=== PATIENT | female | born 1980 | race American Indian/Alaskan Native ===

== ENCOUNTER 2016-11-18 22:48 | Emergency (ER) | payer MEDICAID ==
[2016-11-19] MEDS ORDERED: MOTRIN PO ONE (02:16)
[2016-11-19] MEDS ORDERED: MOTRIN ONE (02:17)
[2016-11-19] MEDS ORDERED: XYLOCAINE 2% INFILTRATI ONE (02:46)
--- NOTE | 2016-11-19 02:57 | Emergency Department Report ---
Abscess Boil HPI - HPI Chief Complaint: Skin/Abscess/Foreign Body Stated Complaint: CYST/ ABD PAIN Time Seen by Provider: 11/19/16 02:45 Duration: 3 Days Location: Other (groin right) Severity: Moderate History: Yes Pain, Yes Previous History, No Fever, No Numbness, No Foreign Body , No Insect Bite HPI: The patient is a 36-year-old female who presents to ED with her complaining of right groin pain and swelling for the past week. Patient states swelling has gotten bigger and painful to touch. Patient states she is unable to walk due to size in her groin and discomfort. She denies fevers/chills/ nausea/vomiting/abdominal pain/chest pain or any other problems Home Medications: Home Medications Medication Instructions Recorded Confirmed Last Taken Valacyclovir HCl [valACYclovir] 1 tab PO BID 07/08/15 07/17/15 07/07/15 21:00 1 Previous Rx's Medication Instructions Recorded Last Taken Type Ferrous Sulfate [Feosol 325 MG tab] 325 mg PO BID #60 tablet 07/18/15 Unknown Rx Vit W-Ca,Fe,FA(<1 mg) 1 each PO DAILY #30 tablet 07/18/15 Unknown Rx [ Vitamins] Acetaminophen/Codeine [Tylenol 1 tab PO Q6H PRN #10 tab 11/19/16 Unknown Rx /Codeine # 3 tab] Ibuprofen [Motrin 800 MG tab] 800 mg PO Q8HR PRN #30 tablet 11/19/16 Unknown Rx Sulfamethoxazole/Trimethoprim 1 each PO BID #14 tablet 11/19/16 Unknown Rx [Bactrim DS TAB] Allergies/Adverse Reactions: Allergies Allergy/AdvReac Type Severity Reaction Status Date / Time No Known Allergies Allergy Verified 07/08/15 07:23 ED Review of Systems ROS: Stated complaint: CYST/ ABD PAIN Other details as noted in HPI Constitutional: denies: chills, fever Eyes: denies: eye pain, eye discharge, vision change ENT: denies: ear pain, throat pain Respiratory: denies: cough, shortness of breath, wheezing Cardiovascular: denies: chest pain, palpitations Endocrine: no symptoms reported Gastrointestinal: denies: abdominal pain, nausea, diarrhea Genitourinary: denies: urgency, dysuria, discharge Musculoskeletal: denies: back pain, joint swelling, arthralgia Skin: denies: rash, lesions Neurological: denies: headache, weakness, paresthesias Psychiatric: denies: anxiety, depression Hematological/Lymphatic: denies: easy bleeding, easy bruising ED Past Medical Hx - Past Medical History Previous Medical History?: Yes Hx Hypertension: Yes Hx Congestive Heart Failure: No Hx Diabetes: No Hx Deep Vein Thrombosis: No Hx Renal Disease: No Hx Sickle Cell Disease: No Hx Seizures: No Hx Asthma: No Hx COPD: No Hx HIV: No - Surgical History Past Surgical History?: No - Social History Smoking Status: Current Every Day Smoker Substance Use Type: None - Medications Home Medications: Home Medications Medication Instructions Recorded Confirmed Last Taken Type Valacyclovir HCl [valACYclovir] 1 tab PO BID 07/08/15 07/17/15 07/07/15 21:00 History 1 Ferrous Sulfate [Feosol 325 MG tab] 325 mg PO BID #60 tablet 07/18/15 Unknown Rx Vit W-Ca,Fe,FA(<1 mg) 1 each PO DAILY #30 tablet 07/18/15 Unknown Rx [ Vitamins] Acetaminophen/Codeine [Tylenol 1 tab PO Q6H PRN #10 tab 11/19/16 Unknown Rx /Codeine # 3 tab] Ibuprofen [Motrin 800 MG tab] 800 mg PO Q8HR PRN #30 tablet 11/19/16 Unknown Rx Sulfamethoxazole/Trimethoprim 1 each PO BID #14 tablet 11/19/16 Unknown Rx [Bactrim DS TAB] ED Abscess Boil Physical Exam - Exam General: Vital signs noted. No distress. Alert and acting appropriately. Size: >5 cm Exam: Yes Tenderness, Yes Fluctuance, Yes Normal Neurologic Exam, Yes Normal Circulation, No Surrounding Cellulites/Erythema, No Lymphangitis, No Crepitation , No Heart Murmur I & D Note - I & D Note I & D Note: Patient positioned appropriately, 15cc lidocaine without epinephrine was used as a local anesthetic. #11 blade scalpal used for single incision. Additional local anesthetic injected into surrounding viable tissue prior to blunt dissection of loculated adhesions. Copius drainage of pus about 10 mL of copious drainage pus obtained. Wound packed with iodoform gauze. Procedure tolerated without complications. Wound dressed with sterile 4x4 guaze and paper tape. Pt tolerated procedure well. ED Course Vital Signs 11/18/16 22:55 Temperature 98.6 F Pulse Rate 99 H Respiratory 20 Rate Blood Pressure 132/90 [Right] O2 Sat by Pulse 97 Oximetry Critical care attestation.: If time is entered above; I have spent that time in minutes in the direct care of this critically ill patient, excluding procedure time. ED Medical Decision Making - Medical Decision Making 36 yo female presents with R groin abscess ED course: Patient is given 1 dose of Motrin. See I and D note Discussed home medication of antibiotics and pain control excellent discussed the patient follow up with ED 3 days for packing removal and wound check Vital signs are normal patient is in no acute distress Patient is alert and oriented 3 she understands instructions given ED Disposition Clinical Impression: Abscess of groin, right Disposition: DC- TO HOME OR SELFCARE Is pt being admited?: No Does the pt Need Aspirin: No Condition: Stable Instructions: Abscess (ED), Abscess Incision and Drainage (ED) Additional Instructions: Return to the ED in 3 days for packing removal and recheck Prescriptions: Acetaminophen/Codeine [Tylenol /Codeine # 3 tab] 1 tab PO Q6H PRN #10 tab PRN Reason: Pain Ibuprofen [Motrin 800 MG tab] 800 mg PO Q8HR PRN #30 tablet PRN Reason: Moderate Pain Sulfamethoxazole/Trimethoprim [Bactrim DS TAB] 1 each PO BID #14 tablet Referrals: PRIMARY CARE,MD [Primary Care Provider] - 3-5 Days [facility] [Outside] - 3-5 Days [facility] [Outside] - 3-5 Days [facility] [Outside] - 3-5 Days Forms: Accompanied Note, Work/School Release Form(ED)
[2016-11-19 04:18] VITALS: BP 132/71
== END 2016-11-19 04:18 | disposition home or self-care (01) ==
LOC: ED 22:48
DX: L02.214 Cutaneous abscess of groin (principal); I10 Essential (primary) hypertension; F17.200 Nicotine dependence, unspecified, uncomplicated

== ENCOUNTER → 2017-07-30 03:24 | Emergency (ER) | payer MEDICAID ==
[2017-07-30 04:48] VITALS: BP 111/64
== END | disposition left against medical advice (07) ==
LOC: ED 03:24
DX: Z53.21 Procedure and treatment not carried out due to patient leaving prior to being seen by health care provider (principal)

== ENCOUNTER 2020-08-12 02:47 | Inpatient (IN) | payer MEDICAID ==
[2020-08-12] MEDS ORDERED: IPRATROPIUM/ALBUTEROL SULFATE 3 ML AMPUL.NEB IH ONE (08:22)
--- NOTE | 2020-08-12 08:28 | Emergency Department Report ---
HPI - General Chief Complaint: Chest Pain Time Seen by Provider: 08/12/20 08:16 - [facility] HPI: Room 20 The patient is a 40-year-old female present with a chief complaint of shortness of breath. The patient states since yesterday she developed shortness of breath and a constant chest pressure. Patient states she ran out of her Lasix several weeks ago. Patient admits an occasional cough but states is nonproductive. Patient denies history of fever. Patient admits to pleurisy ED Past Medical Hx - Past Medical History Hx Hypertension: Yes Hx Congestive Heart Failure: Yes Hx Asthma: Yes - Surgical History Past Surgical History?: No - Family History Family history: no significant - Social History Smoking Status: Former Smoker (None times weeks) Substance Use Type: None (Denies illicit drug use) - Medications Home Medications: Home Medications Medication Instructions Recorded Confirmed Last Taken Type Valacyclovir HCl [valACYclovir] 1 tab PO BID 07/08/15 07/17/15 07/07/15 21:00 History 1 Ferrous Sulfate [Feosol 325 MG tab] 325 mg PO BID #60 tablet 07/18/15 Unknown Rx Vit Calc,Iron,Folic 1 each PO DAILY #30 tablet 07/18/15 Unknown Rx [ Vitamins] Acetaminophen/Codeine [Tylenol 1 tab PO Q6H PRN #10 tab 11/19/16 Unknown Rx /Codeine # 3 tab] Ibuprofen [Motrin 800 MG tab] 800 mg PO Q8HR PRN #30 tablet 11/19/16 Unknown Rx Sulfamethoxazole/Trimethoprim 1 each PO BID #14 tablet 11/19/16 Unknown Rx [Bactrim DS TAB] ED Review of Systems ROS: Stated complaint: CHEST PAIN/CAN'T BREATH Other details as noted in HPI Constitutional: denies: fever Eyes: denies: eye pain ENT: denies: throat pain Respiratory: cough, shortness of breath Cardiovascular: chest pain Endocrine: no symptoms reported Gastrointestinal: denies: abdominal pain Genitourinary: denies: dysuria Musculoskeletal: denies: back pain Neurological: denies: headache Physical Exam - Physical Exam Vital Signs: Vital Signs 08/12/20 08/12/20 03:00 04:04 Temperature 98.2 F Pulse Rate 107 H Respiratory 18 Rate Blood Pressure 123/98 [Left] O2 Sat by Pulse 97 Oximetry Physical Exam: GENERAL: The patient is well-developed well-nourished female lying on stretcher exhibiting increased work of breathing. [] HEENT: Normocephalic. Atraumatic. Extraocular motions are intact. Patient has moist mucous membranes. NECK: Supple. Trachea midline CHEST/LUNGS: Clear to auscultation. There is increased work of breathing HEART/CARDIOVASCULAR: Regular. There is no tachycardia. There is no gallop rub or murmur. ABDOMEN: Abdomen is soft, nontender. Patient has normal bowel sounds. There is no abdominal distention. SKIN: There is no rash. There is no edema. There is no diaphoresis. NEURO: The patient is awake, alert, and oriented. The patient is cooperative. The patient has no focal neurologic deficits. The patient has normal speech MUSCULOSKELETAL: There is no evidence of acute injury. ED Course Vital Signs 08/12/20 08/12/20 03:00 04:04 Temperature 98.2 F Pulse Rate 107 H Respiratory 18 Rate Blood Pressure 123/98 [Left] O2 Sat by Pulse 97 Oximetry ED Medical Decision Making - Lab Data Result diagrams: 08/12/20 09:00 08/12/20 09:00 Laboratory Tests 08/12/20 08/12/20 08/12/20 09:00 09:00 09:00 WBC 8.7 RBC 3.87 Hgb 10.5 Hct 32.6 MCV 84 MCH 27 L MCHC 32 RDW 18.8 H Plt Count 158 Lymph % (Auto) 15.2 Izard % (Auto) 4.8 Eos % (Auto) 1.2 Baso % (Auto) 0.5 Lymph # (Auto) 1.3 Izard # (Auto) 0.4 Eos # (Auto) 0.1 Baso # (Auto) 0.0 Seg Neutrophils % 78.3 H Seg Neutrophils # 6.8 D-Dimer 738.34 H Sodium 138 Potassium 4.1 Chloride 104.3 Carbon Dioxide 23 Anion Gap 15 BUN 12 Creatinine 0.6 Estimated GFR > 60 BUN/Creatinine Ratio 20 Glucose 96 Calcium 8.2 L Total Creatine Kinase 83 CK-MB (CK-2) 1.8 CK-MB (CK-2) Rel Index 2.1 Troponin T < 0.010 NT-Pro-B Natriuret Pep 978.7 H HCG, Qual 08/12/20 09:00 WBC RBC Hgb Hct MCV MCH MCHC RDW Plt Count Lymph % (Auto) Izard % (Auto) Eos % (Auto) Baso % (Auto) Lymph # (Auto) Izard # (Auto) Eos # (Auto) Baso # (Auto) Seg Neutrophils % Seg Neutrophils # D-Dimer Sodium Potassium Chloride Carbon Dioxide Anion Gap BUN Creatinine Estimated GFR BUN/Creatinine Ratio Glucose Calcium Total Creatine Kinase CK-MB (CK-2) CK-MB (CK-2) Rel Index Troponin T NT-Pro-B Natriuret Pep HCG, Qual Negative - EKG Data -: EKG Interpreted by Me EKG shows normal: sinus rhythm Rate: normal - EKG Data When compared to previous EKG there are: previous EKG unavailable Interpretation: nonspecific ST-T wave tiffany (T wave inversion in lead V5) - Radiology Data Radiology results: report reviewed (CT chest), image reviewed (Chest x-ray, CT chest) interpreted by me: Chest x-ray-CHF, no pneumothorax. No foreign body seen [facility] [address] [place] [address] Cat Scan Report Signed Patient: LANA MCCOLLUM MR#: [id number] : 1980 Acct:[id number] Age/Sex: 40 / F ADM Date: 08/12/20 Loc: ED Attend ing Dr: Ordering Physician: BRYAN CHAND MD Date of Service: 08/12/20 Procedure(s): CT angio chest Accession Number(s): [id number] cc: BRYAN CHAND MD CTA CHEST WITH CONTRAST INDICATION / CLINICAL INFORMATION: MAIN. TECHNIQUE: Axial CT images were obtained through the chest after injection of IV contrast. 3 plane MIP and/or 3D reconstructions were produced. All CT scans at this location are performed using CT dose reduction for ALARA by means of automated exposure control. COMPARISON: None available. FINDINGS: PULMONARY ARTERIES: No central or segmental pulmonary embolus. THORACIC AORTA: No significant abnormality. HEART: There is cardiac enlargement. No pericardial effusion. ADENOPATHY: Shotty hilar lymph nodes are likely reactive. No significant mediastinal lymphadenopathy. LUNGS/PLEURA: Multifocal airspace consolidations throughout the lungs, more pronounced in the right. There is interlobular septal thickening in the lung bases. Small right and trace left pleural effusions. No pneumothorax. ADDITIONAL FINDINGS: None. UPPER ABDOMEN: No acute findings. SKELETAL STRUCTURES: No significant osseous abnormality. IMPRESSION: 1. No evidence for pulmonary embolism. 2. Multifocal airspace consolidations throughout the lungs, greater on the right. There are small right and trace left pleural effusions with interlobular septal thickening in the lung bases. Findings are favored to reflect multifocal pneumonia, though component of CHF with pulmonary edema may also be present. Signer Name: Starr Quinteros MD Signed: 08/12/2020 1:40 PM Workstation Name: [id number] Transcribed By: ROBBY Hazel tated By: STARR QUINTEROS MD Electronically Authenticated By: STARR QUINTEROS MD Signed Date/Time: 08/12/20 1340 DD/ 1336 TD/TT: Print Cancel - Differential Diagnosis CHF exacerbation, asthma exacerbation, pneumonia, PE Critical care attestation.: If time is entered above; I have spent that time in minutes in the direct care of this critically ill patient, excluding procedure time. ED Disposition Clinical Impression: CHF exacerbation, Shortness of breath, Chest pain Disposition: OP ADMIT IP TO THIS HOSP Is pt being admited?: Yes Does the pt Need Aspirin: Yes Condition: Stable Instructions: Nonspecific Chest Pain, Adult Referrals: PRIMARY CARE, [Primary Care Provider] - 3-5 Days Time of Disposition: 14:07 (Hospitalist notified (Dr. Garrett)) Heart Score - HEART Score History: Slightly suspicious EKG: Non-specific Age: < 45 Risk factors: 1-2 risk factors Troponin: < normal limit HEART Score: 2 - EKG Read Time Time EKG Completed: 04:48 EKG Read Time: 04:51
[2020-08-12 09:18] LABS: Basophils % (Auto) 0.5 % (0.0-1.8); Eosinophils # (Auto) 0.1 K/mm3 (0.0-0.4); Eosinophils % (Auto) 1.2 % (0.0-4.3); Hematocrit 32.6 % (30.3-42.9); Hemoglobin 10.5 gm/dl (10.1-14.3); Lymphocytes # (Auto) 1.3 K/mm3 (1.2-5.4); Lymphocytes % (Auto) 15.2 % (13.4-35.0); Mean Corpuscular HGB Conc 32 % (30-34); Mean Corpuscular Volume 84 fl (79-97); Monocytes # (Auto) 0.4 K/mm3 (0.0-0.8); Monocytes % (Auto) 4.8 % (0.0-7.3); Platelet Count 158 K/mm3 (140-440); Red Blood Count 3.87 M/mm3 (3.65-5.03); Red Cell Distribution Width 18.8 % (13.2-15.2)
[2020-08-12 09:48] LABS: Creatine Kinase MB 1.8 ng/mL (0.0-4.0)
[2020-08-12 09:54] LABS: Blood Urea Nitrogen 12 mg/dL (7-17); Calcium 8.2 mg/dL (8.4-10.2); Hemolysis Index 0
[2020-08-12] MEDS ORDERED: FUROSEMIDE 40 MG/4 ML INJ IV ONE (10:22)
[2020-08-12 10:29] LABS: BUN/Creatinine Ratio 20
--- NOTE | 2020-08-12 13:44 | Cat Scan Report ---
CTA CHEST WITH CONTRAST INDICATION / CLINICAL INFORMATION: MAIN. TECHNIQUE: Axial CT images were obtained through the chest after injection of IV contrast. 3 plane GA P and/or 3D reconstructions were produced. All CT scans at this location are performed using CT dose reduction for ALARA by means of automated exposure control. COMPARISON: None available. FINDINGS: PULMONARY ARTERIES: No central or segmental pulmonary embolus. THORACIC AORTA: No significant abnormality. HEART: There is cardiac enlargement. No pericardial effusion. ADENOPATHY: Shotty hilar lymph nodes are likely reactive. No significant mediastinal lymphadenopathy. LUNGS/PLEURA: Multifocal airspace consolidations throughout the lungs, more pronounced in the right. There is interlobular septal thickening in the lung bases. Small right and trace left pleural effusio ns. No pneumothorax. ADDITIONAL FINDINGS: None. UPPER ABDOMEN: No acute findings. SKELETAL STRUCTURES: No significant osseous abnormality. IMPRESSION: 1. No evidence for pulmonary embolism. 2. Multifocal airspace consolidations throughout the lungs, greater on the right. There are small rig ht and trace left pleural effusions with interlobular septal thickening in the lung bases. Findings a re favored to reflect multifocal pneumonia, though component of CHF with pulmonary edema may also be present. Signer Name: Shilo Quinteros MD Signed: 08/12/2020 1:40 PM Workstation Name: [id number]
[2020-08-12] MEDS ORDERED: cefTRIAXone/NS 1 GM/50 ML 1 GM/50 ML BAG IV ONE (14:00)
[2020-08-12] MEDS ORDERED: AZITHROMYCIN/NS 500 MG/250 ML 500 MG/250 ML BAG IV ONE (14:00)
--- NOTE | 2020-08-12 14:13 | History and Physical Report ---
History of Present Illness Chief complaint: It is hard to breathe History of present illness: 40 YO Female with Obesity, HTN, Asthma, CHF, Medication Noncompliance presents to ED for evaluation. Patient reports "I am having a hard time breathing". Patient states that she has experienced shortness of breath, as well as chest pressure over the past 1 day with persistent symptoms over the same timeframe. Patient also acknowledges generalized weakness, malaise, decreased exercise tolerance over the past 1 week with persistent and worsening symptoms over the past 2 days. Patient acknowledges medication noncompliance and reports that she exhausted her supply of Lasix several weeks ago. Patient also acknowledges not some compliance with low-sodium diet. EMS was notified and upon arrival the patient was found to be in distress and subsequently transported to [facility] for further care and evaluation of the aforementioned symptoms. The patient was seen and evaluated in the emergency department. All lab and imaging studies reviewed. Patient found to be tachycardic as well as with a pulse oximetry of 88% on room air with exertion which is consistent with acute hypoxemic respiratory failure. The patient underwent chest x-ray and was found to have bilateral pneumonia with concomitant small pleural effusions bilaterally. Patient also found to have symptoms consistent with CHF decompensation. The patient was admitted to the medical floor and initiated on pneumonia protocol as well as coronavirus protocol, and CHF protocol. Patient denies fever, chills, chest pain, palpitations, skin rash, recent ill contacts, or known exposure to COVID-19. Past History Past Medical History: heart failure, hypertension, other (See HPI) Past Surgical History: No surgical history, Other (Reviewed) Social history: , lives with family. denies: smoking, alcohol abuse, prescription drug abuse Family history: hypertension Medications and Allergies Allergies Allergy/AdvReac Type Severity Reaction Status Date / Time No Known Allergies Allergy Verified 07/08/15 07:23 Home Medications Medication Instructions Recorded Confirmed Last Taken Type Valacyclovir HCl [valACYclovir] 1 tab PO BID 07/08/15 07/17/15 07/07/15 21:00 History 1 Ferrous Sulfate [Feosol 325 MG tab] 325 mg PO BID #60 tablet 07/18/15 Unknown Rx Vit Calc,Iron,Folic 1 each PO DAILY #30 tablet 07/18/15 Unknown Rx [ Vitamins] Acetaminophen/Codeine [Tylenol 1 tab PO Q6H PRN #10 tab 11/19/16 Unknown Rx /Codeine # 3 tab] Ibuprofen [Motrin 800 MG tab] 800 mg PO Q8HR PRN #30 tablet 11/19/16 Unknown Rx Sulfamethoxazole/Trimethoprim 1 each PO BID #14 tablet 11/19/16 Unknown Rx [Bactrim DS TAB] Active Meds: Active Medications Acetaminophen (Acetaminophen 325 Mg Tab) 650 mg PO Q4H PRN PRN Reason: Pain MILD(1-3)/Fever >100.5/CHA Acetaminophen/Codeine Phosphate (Acetaminophen W/Codeine 300-30 Mg Tab) 1 tab PO Q6H PRN PRN Reason: PAIN Albuterol (Albuterol 2.5 Mg/3 Ml Nebu) 2.5 mg IH Q4HRT PRN PRN Reason: Shortness Of Breath Ferrous Sulfate (Ferrous Sulfate 325 Mg Tab) 325 mg PO BID DENA Azithromycin (Zithromax/Ns) 500 mg in 250 mls @ 250 mls/hr IV ONCE ONE; Protocol Stop: 08/12/20 14:59 Ceftriaxone Sodium (Rocephin/Ns 1 Gm/50 Ml) 1 gm in 50 mls @ 100 mls/hr IV ONCE ONE; Protocol Stop: 08/12/20 14:29 Miscellaneous Medication ( Vit Calc,Iron,Folic [ Vitamins]) 1 each PO DAILY DENA Ondansetron HCl (Ondansetron 4 Mg/2 Ml Inj) 4 mg IV Q8H PRN PRN Reason: Nausea And Vomiting Sodium Chloride (Sodium Chloride 0.9% 10 Ml Flush Syringe) 10 ml IV BID DENA Sodium Chloride (Sodium Chloride 0.9% 10 Ml Flush Syringe) 10 ml IV PRN PRN PRN Reason: LINE FLUSH Valacyclovir HCl (Valacyclovir 500 Mg Tab) mg PO BID [facility] Review of Systems Constitutional: fatigue, weakness, malaise, no weight loss, no weight gain, no fever Ears, nose, mouth and throat: no ear pain, no ear discharge, no tinnitis, no decreased hearing, no nasal congestion, no nasal discharge Breasts: no change in shape, no swelling Cardiovascular: orthopnea, shortness of breath, dyspnea on exertion, paroxysmal nocturnal dyspnea, decreased exercise tolerance, no chest pain, no rapid/irregular heart beat Respiratory: no cough Gastrointestinal: no nausea, no vomiting, no diarrhea Genitourinary Female: no pelvic pain, no flank pain, no dysuria, no urinary frequency, no urgency Rectal: no pain, no incontinence, no bleeding Musculoskeletal: no neck stiffness, no neck pain, no shooting arm pain, no arm numbness/tingling, no low back pain Integumentary: no rash, no pruritis, no redness, no sores, no wounds Neurological: no transient paralysis, no paralysis, no parathesias, no numbness, no tingling, no syncope Psychiatric: no anxiety, no change in sleep habits, no sleep disturbances, no hypersomnia, no change in libido, no disorientation Endocrine: no cold intolerance, no polyphagia, no polydipsia, no polyuria Hematologic/Lymphatic: no easy bruising, no easy bleeding Allergic/Immunologic: no urticaria, no allergic rhinitis, no wheezing Exam - Constitutional Vitals: Temp Pulse Resp BP Pulse Ox 96.9 F L 106 H 16 149/78 100 08/12/20 09:23 08/12/20 09:23 08/12/20 09:23 08/12/20 09:23 08/12/20 09:23 General appearance: Present: mild distress, obese - EENT Eyes: Present: PERRL ENT: hearing intact, clear oral mucosa - Neck Neck: Present: supple, normal ROM - Respiratory Respiratory effort: labored, accessory muscle use, stridor Respiratory: bilateral: diminished, rhonchi - Cardiovascular Heart Sounds: Present: S1 & S2. Absent: rub, click - Extremities Extremities: pulses symmetrical, No edema Peripheral Pulses: within normal limits - Abdominal General gastrointestinal: Present: soft, non-tender, non-distended, normal bowel sounds Female genitourinary: Present: normal - Integumentary Integumentary: Present: clear, warm, dry - Musculoskeletal Musculoskeletal: gait normal, strength equal bilaterally - Psychiatric Psychiatric: appropriate mood/affect, intact judgment & insight - Neurologic Neurologic: CNII-XII intact, moves all extremities HEART Score - HEART Score EKG: Non-specific Age: < 45 Risk factors: 1-2 risk factors Troponin: Troponin T < 0.010 ng/mL (0.00-0.029) 08/12/20 09:00 Troponin: < normal limit Results - Labs CBC & Chem 7: 08/12/20 09:00 08/12/20 09:00 Labs: Abnormal lab results 08/12/20 08/12/20 08/12/20 Range/Units 09:00 09:00 09:00 MCH 27 L (28-32) pg RDW 18.8 H (13.2-15.2) % Seg Neutrophils % 78.3 H (40.0-70.0) % D-Dimer 738.34 H (0-234) ng/mlDDU Calcium 8.2 L (8.4-10.2) mg/dL NT-Pro-B Natriuret Pep 978.7 H (0-450) pg/mL Assessment and Plan - Patient Problems (1) Acute hypoxemic respiratory failure Current Visit: Yes Status: Acute Plan to address problem: Chest x-ray, supplemental oxygen, pulse oximetry, nebulizer therapy, noninvasive positive pressure ventilation as clinically indicated. (2) Suspected 2019 novel coronavirus infection Current Visit: Yes Status: Acute Plan to address problem: Coronavirus protocol: Contact precautions, isolation precautions, IV steroid therapy, IV antibiotic therapy, vitamin C therapy, vitamin D therapy, zinc therapy, prone positioning while in bed, prophylactic anticoagulation. (3) Pneumonia Current Visit: Yes Status: Acute Plan to address problem: Pneumonia protocol: Chest x-ray, CBC, CMP, IV antibiotic therapy, nebulizer therapy, blood culture. (4) CHF (congestive heart failure) Current Visit: Yes Status: Acute Qualifiers: Heart failure type: systolic Heart failure chronicity: acute Qualified Code(s): I50.21 - Acute systolic (congestive) heart failure Plan to address problem: Strict I's/O, monitor urine output every shift, daily weight, afterload reduction, blood pressure control, echocardiogram ordered and is pending at time of admission, cardiology team consulted. (5) Obesity hypoventilation syndrome Current Visit: Yes Status: Acute Plan to address problem: Balanced diet, increase physical activity at discharge, outpatient pulmonary follow-up for sleep study. (6) DVT prophylaxis Current Visit: Yes Status: Acute Plan to address problem: SCD to bilateral lower extremities while in bed, prophylactic anticoagulation.
[2020-08-12] MEDS ORDERED: ACETAMINOPHEN 325 MG TAB PO PRN (14:30)
[2020-08-12] MEDS ORDERED: ONDANSETRON 4 MG/2 ML INJ IV PRN (14:30)
[2020-08-12] MEDS ORDERED: ACETAMINOPHEN W/CODEINE 300-30 MG TAB PO PRN (14:30)
[2020-08-12 17:44] LABS: C-Reactive Protein 3.8 mg/dL (0.00-1.30)
[2020-08-12] MEDS: ALBUTEROL 2.5 MG/3 ML NEBU IH PRN (20:13)
[2020-08-12] MEDS: FERROUS SULFATE 325 MG TAB PO SCH (21:54)
[2020-08-12] MEDS: ASCORBIC ACID 500 MG TAB PO SCH (21:54)
[2020-08-12] MEDS: valACYclovir 500 MG TAB PO SCH (21:54)
[2020-08-12] MEDS: ZINC SULFATE 220 MG CAP PO SCH (21:54)
[2020-08-12] MEDS: FAMOTIDINE 20 MG TAB PO SCH (21:55)
[2020-08-12] MEDS: HEPARIN 5,000 UNIT/1 ML VIAL SUB-Q SCH (21:56)
[2020-08-12] MEDS: methylPREDNISolone Sod Succinate 40 MG/1 ML INJ IV SCH (21:56)
[2020-08-12] MEDS: FUROSEMIDE 20 MG/2 ML INJ IV SCH (22:21)
[2020-08-13] MEDS: ALBUTEROL 2.5 MG/3 ML NEBU IH PRN (02:18)
[2020-08-13] MEDS: FUROSEMIDE 20 MG/2 ML INJ IV SCH (05:50)
[2020-08-13] MEDS: methylPREDNISolone Sod Succinate 40 MG/1 ML INJ IV SCH ×3 (05:50→21:33)
[2020-08-13] MEDS ORDERED: PRENATAL VIT CALC IRON FOLIC PO SCH (10:00)
[2020-08-13 10:07] LABS: Basophils % (Auto) 0.2 % (0.0-1.8); Hematocrit 33.9 % (30.3-42.9); Lymphocytes # (Auto) 0.6 K/mm3 (1.2-5.4); Lymphocytes % (Auto) 9.8 % (13.4-35.0); Mean Corpuscular HGB Conc 32 % (30-34); Mean Corpuscular Volume 84 fl (79-97); Monocytes # (Auto) 0.1 K/mm3 (0.0-0.8); Monocytes % (Auto) 2.1 % (0.0-7.3); Platelet Count 183 K/mm3 (140-440); Red Blood Count 4.04 M/mm3 (3.65-5.03); Red Cell Distribution Width 18.8 % (13.2-15.2)
--- NOTE | 2020-08-13 10:35 | Consultation ---
History of Present Illness Consult date: 08/13/20 Requesting physician: AUSTIN GAMEZ Consult reason: congestive heart failure History of present illness: This patient is a 41-year-old female with a significant history of cardiomyopathy since 2013 asthma anxiety hypertension hyperlipidemia. She is previously unknown to our practice and does not currently follow with cardiology. Patient presents to [facility] ER complaining of shortness of breath x1 day shortness of breath is with inspiration nonreproducible with palpation. Patient endorses exertional shortness of breath and orthopnea. Of note patient was recently seen at [facility] ER where she was told she had "fluid around the heart". Patient is prescribed Lasix p.o. which she admits to being noncompliant. Patient is 1 pack/day tobacco user [id number] history. She denies EtOH or other substance use. She has been previously treated for hypertension, reports taking antihypertensive medication in 2013 but has not followed up with care since that point. Of note patient is 2 months with 10th child. Patient reports that she has appointment to be established with [facility] who cared for her on her [facility] admission but has not seen them in clinic at this point. At time of exam patient has no peripheral edema, abdomen is soft and nontender, breath sounds are significantly diminished on the right with expiratory wheeze. Heart tones are normal. BNP is noted to be elevated on admission. CTA chest reviewed negative for pulmonary thromboembolism. Right-sided multifocal pneumonia suspected. Echocardiogram reviewed (08/12/2020): EF 30 to 35%. Moderate global hypokinesis of the left ventricle. Left ventricle severely dilated. LV SF is moderately decreased. Moderate mitral regurg. Trace tricuspid regurg. RVSP is 30-35 mmHg. Past History Past Medical History: heart failure, hypertension, other (See HPI) Past Surgical History: No surgical history, Other (Reviewed) Social history: , lives with family. denies: smoking, alcohol abuse, prescription drug abuse Family history: hypertension Medications and Allergies Allergies Allergy/AdvReac Type Severity Reaction Status Date / Time No Known Allergies Allergy Verified 07/08/15 07:23 Home Medications Medication Instructions Recorded Confirmed Last Taken Type Valacyclovir HCl [valACYclovir] 1 tab PO BID 07/08/15 08/13/20 07/07/15 21:00 History 1 Vit Calc,Iron,Folic 1 each PO DAILY #30 tablet 07/18/15 08/13/20 Unknown Rx [ Vitamins] RX: Ferrous Sulfate [Feosol 325 MG 325 mg PO BID #60 tablet 07/18/15 08/13/20 Unknown Rx tab] Acetaminophen/Codeine [Tylenol 1 tab PO Q6H PRN #10 tab 11/19/16 08/13/20 Unknown Rx /Codeine # 3 tab] RX: Ibuprofen [Motrin 800 MG tab] 800 mg PO Q8HR PRN #30 tablet 11/19/16 08/13/20 Unknown Rx Sulfamethoxazole/Trimethoprim 1 each PO BID #14 tablet 11/19/16 08/13/20 Unknown Rx [Bactrim DS TAB] Active Meds: Active Medications Acetaminophen (Acetaminophen 325 Mg Tab) 650 mg PO Q4H PRN PRN Reason: Pain MILD(1-3)/Fever >100.5/CHA Acetaminophen/Codeine Phosphate (Acetaminophen W/Codeine 300-30 Mg Tab) 1 tab P O Q6H PRN PRN Reason: PAIN Albuterol (Albuterol 2.5 Mg/3 Ml Nebu) 2.5 mg IH Q4HRT PRN PRN Reason: Shortness Of Breath Last Admin: 08/13/20 02:18 Dose: 2.5 mg Documented by: Ascorbic Acid (Ascorbic Acid 500 Mg Tab) 500 mg PO BID [facility] Last Admin: 08/12/20 21:54 Dose: 500 mg Documented by: Cholecalciferol (Cholecalciferol (Vit D3) 1000 Unit (25 Mcg) Tab) 1,000 unit PO QDAY [facility] Famotidine (Famotidine 20 Mg Tab) 20 mg PO BID [facility] Last Admin: 08/12/20 21:55 Dose: 20 mg Documented by: Ferrous Sulfate (Ferrous Sulfate 325 Mg Tab) 325 mg PO BID [facility] Last Admin: 08/12/20 21:54 Dose: 325 mg Documented by: Furosemide (Furosemide 20 Mg/2 Ml Inj) 20 mg IV BID@0600,1800 [facility] Last Admin: 08/13/20 05:50 Dose: 20 mg Documented by: Heparin Sodium (Porcine) (Heparin 5,000 Unit/1 Ml Vial) 5,000 unit SUB-Q Q12HR [facility] Last Admin: 08/12/20 21:56 Dose: 5,000 unit Documented by: Ceftriaxone Sodium (Rocephin/Ns 2 Gm/100 Ml) 2 gm in 100 mls @ 200 mls/hr IV Q24H [facility]; Protocol Azithromycin (Zithromax/Ns) 500 mg in 250 mls @ 250 mls/hr IV Q24H [facility]; Protocol Methylprednisolone Sodium Succinate (Methylprednisolone Sod Succinate 40 Mg/1 Ml Inj) 40 mg IV Q8HR [facility] Last Admin: 08/13/20 05:50 Dose: 40 mg Documented by: Multivitamins/Iron/Calcium ( Pcl95-Ha Fumarate-Folic Acid Vit Tab) 1 each PO DAILY [facility] Ondansetron HCl (Ondansetron 4 Mg/2 Ml Inj) 4 mg IV Q8H PRN PRN Reason: Nausea And Vomiting Sodium Chloride (Sodium Chloride 0.9% 10 Ml Flush Syringe) 10 ml IV BID [facility] Last Admin: 08/12/20 21:56 Dose: 10 ml Documented by: Sodium Chloride (Sodium Chloride 0.9% 10 Ml Flush Syringe) 10 ml IV PRN PRN PRN Reason: LINE FLUSH Valacyclovir HCl (Valacyclovir 500 Mg Tab) 500 mg PO BID [facility] Last Admin: 08/12/20 21:54 Dose: 500 mg Documented by: Zinc Sulfate (Zinc Sulfate 220 Mg Cap) 220 mg PO BID [facility] Last Admin: 08/12/20 21:54 Dose: 220 mg Documented by: Review of Systems Constitutional: no weight loss, no weight gain, no fever, no chills, no sweats Ears, nose, mouth and throat: no ear pain, no ear discharge, no nose pain, no nasal congestion, no nasal discharge Cardiovascular: chest pain, orthopnea, shortness of breath, no palpitations, no rapid/irregular heart beat, no edema, no syncope, no lightheadedness Respiratory: cough, shortness of breath, dyspnea on exertion, no cough with sputum, no hemoptysis Gastrointestinal: no abdominal pain, no nausea, no vomiting, no diarrhea Genitourinary Female: no pelvic pain, no flank pain Musculoskeletal: no neck stiffness, no neck pain, no shooting arm pain, no arm numbness/tingling, no low back pain, no shooting leg pain Integumentary: no rash, no pruritis, no redness, no sores, no wounds Neurological: no head injury, no transient paralysis, no paralysis, no weakness, no parathesias, no numbness, no tingling, no seizures, no syncope Psychiatric: anxiety Endocrine: no cold intolerance, no heat intolerance Hematologic/Lymphatic: no easy bruising, no easy bleeding Allergic/Immunologic: no urticaria Physical Examination Last Vital Signs Temp 98.7 F 08/13/20 06:28 Pulse 103 H 08/13/20 06:28 Resp 16 08/13/20 06:28 BP 117/77 08/13/20 06:28 Pulse Ox 100 08/13/20 06:28 General appearance: no acute distress HEENT: Positive: PERRL, Normocephaly, Mucus Membranes Moist Neck: Positive: neck supple, trachea midline Cardiac: Positive: Reg Rate and Rhythm, S1/S2 Lungs: Positive: Decreased Breath Sounds, Wheezes Neuro: Positive: Grossly Intact Abdomen: Positive: Unremarkable, Soft Skin: Negative: Rash, Wound Extremities: Present: upper extr. pulses, lower extr. pulses. Absent: edema Results 08/13/20 08:39 08/13/20 08:39 Cardiac Enzymes 08/12/20 Range/Units 16:40 Lactate Dehydrogenase 235 H (91-180) units/L CBC 08/13/20 Range/Units 08:39 [place] # (Auto) 0.1 (0.0-0.8) K/mm3 Eos # (Auto) 0.0 (0.0-0.4) K/mm3 Baso # (Auto) 0.0 (0.0-0.1) K/mm3 Comprehensive Metabolic Panel 08/12/20 08/12/20 Range/Units 09:00 16:40 Creatinine 0.6 (0.6-1.2) mg/dL Glucose 85 (65-100) mg/dL - Imaging and Cardiology Echo: pending (Echo is pending. Preliminary results indicate ejection fraction 30 to 35%) - EKG Interpretation EKG: sinus rhythm EKG interpretations - Telemetry EKG Rhythm: Sinus Rhythm Assessment and Plan Chest pain EKG reviewed sinus tach heart rate [address] segment elevation Telemetry reviewed sinus rhythm 84 no events Troponin is negative x1. Continue to trend CE's Cardiomyopathy BNP is noted to be elevated on admission. Patient reports previous diagnosis of cardiomyopathy since approximately 2013 associated with state. Patient is currently 2 months with her 10th child. Echocardiogram reviewed (08/12/2020): EF 30 to 35%. Moderate global hypokinesis of the left ventricle. Left ventricle severely dilated. LV SF is moderately decreased. Moderate mitral regurg. Trace tricuspid regurg. RVSP is 30-35 mmHg. Heart failure reduced ejection fraction Optimize volume status. Continue Lasix 20 IV twice daily. Elevated D-dimer CTA chest is negative for pulmonary thromboembolism. Further work-up per primary team. Pneumonia Management per primary team DVT prophylaxis Heparin sq Covid PUI PCR testing is pending Tobacco use Patient is 1 pack/day, [id number] smoking history. She does express interest in cessation. Cessation is encouraged. Patient has significant history of cardiomyopathy. We will plan for ischemic work-up in outpatient setting. We will follow. After discharge, patient should follow-up with Dr. Corona in our [place] office on 08/24/2020 at 8:30 AM. # [phone] This patient was seen in conjunction with Dr. Corona who agrees with this assessment and plan of care - Patient Problems (1) Chest pain Current Visit: Yes Status: Acute (2) Cardiomyopathy Current Visit: Yes Status: Acute (3) Heart failure with reduced ejection fraction Current Visit: Yes Status: Acute (4) Pneumonia Current Visit: Yes Status: Acute (5) DVT prophylaxis Current Visit: Yes Status: Acute (6) Asthma Current Visit: Yes Status: Chronic (7) Anxiety Current Visit: Yes Status: Chronic (8) Hypertension Current Visit: Yes Status: Chronic (9) Hyperlipidemia Current Visit: Yes Status: Chronic (10) Tobacco use Current Visit: Yes Status: Chronic (11) Elevated d-dimer Current Visit: Yes Status: Acute (12) Person under investigation for COVID-19 Current Visit: Yes Status: Acute
[2020-08-13 10:36] LABS: Blood Urea Nitrogen 10 mg/dL (7-17); Calcium 8.6 mg/dL (8.4-10.2); Hemolysis Index 0
[2020-08-13 10:44] LABS: BUN/Creatinine Ratio 14
--- NOTE | 2020-08-13 10:46 | Electrocardiograph Report ---
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
[2020-08-13] MEDS: ASCORBIC ACID 500 MG TAB PO SCH ×2 (11:11→21:32)
[2020-08-13] MEDS: ZINC SULFATE 220 MG CAP PO SCH ×2 (11:11→21:32)
[2020-08-13] MEDS: valACYclovir 500 MG TAB PO SCH ×2 (11:12→21:32)
[2020-08-13] MEDS: FERROUS SULFATE 325 MG TAB PO SCH ×2 (11:12→21:31)
[2020-08-13] MEDS: FAMOTIDINE 20 MG TAB PO SCH ×2 (11:12→21:32)
[2020-08-13] MEDS: CHOLECALCIFEROL (VIT D3) 1000 UNIT (25 mcg) TAB PO SCH (11:12)
[2020-08-13] MEDS: PRENATAL VIT27-FE FUMARATE-FOLIC ACID VIT TAB PO SCH (11:12)
[2020-08-13] MEDS: HEPARIN 5,000 UNIT/1 ML VIAL SUB-Q SCH ×2 (11:12→21:31)
[2020-08-13] MEDS ORDERED: FUROSEMIDE 20 MG/2 ML INJ IV SCH (11:47)
[2020-08-13] MEDS: LISINOPRIL 5 MG TAB PO SCH (13:10)
[2020-08-13] MEDS: METOPROLOL TARTRATE 25 MG TAB PO SCH ×2 (13:11→21:32)
[2020-08-13] MEDS: FUROSEMIDE 40 MG/4 ML INJ IV SCH ×2 (13:14→18:00)
[2020-08-13] MEDS ORDERED: AZITHROMYCIN/NS 500 MG/250 ML 500 MG/250 ML BAG IV SCH (14:00)
[2020-08-13] MEDS ORDERED: cefTRIAXone/NS 2 GM/100 ML 2 GM/100 ML BAG IV SCH (15:00)
--- NOTE | 2020-08-13 16:04 | Progress Note ---
Assessment and Plan (1) Acute hypoxemic respiratory failure Current Visit: Yes Status: Acute Plan to address problem: Chest x-ray, supplemental oxygen, pulse oximetry, nebulizer therapy, noninvasive positive pressure ventilation as clinically indicated. (2) Suspected 2019 novel coronavirus infection Current Visit: Yes Status: Acute Plan to address problem: Coronavirus protocol: Contact precautions, isolation precautions, IV steroid therapy, IV antibiotic therapy, vitamin C therapy, vitamin D therapy, zinc therapy, prone positioning while in bed, prophylactic anticoagulation. (3) Pneumonia Current Visit: Yes Status: Acute Plan to address problem: Pneumonia protocol: Chest x-ray, CBC, CMP, IV antibiotic therapy, nebulizer therapy, blood culture. (4) CHF (congestive heart failure) Current Visit: Yes Status: Acute Qualifiers: Heart failure type: systolic Heart failure chronicity: acute Qualified Code(s): I50.21 - Acute systolic (congestive) heart failure Plan to address problem: Strict I's/O, monitor urine output every shift, daily weight, afterload reduction, blood pressure control, echocardiogram ordered and is pending at time of admission, cardiology team consulted. (5) Obesity hypoventilation syndrome Current Visit: Yes Status: Acute Plan to address problem: Balanced diet, increase physical activity at discharge, outpatient pulmonary follow-up for sleep study. (6) DVT prophylaxis Current Visit: Yes Status: Acute Plan to address problem: SCD to bilateral lower extremities while in bed, prophylactic anticoagulation. Daily clinical course: 08/13: Pending Covid test, 2D echo showed EF 30 to 35%. Continue Lasix as needed, cardiology following. Monitor ins and outs and daily BMP Subjective Date of service: 08/13/20 Interval history: Patient seen and examined. Medical records and medication list reviewed. No acute event overnight noted by the RN. Patient denies any chest pain. Patient is tolerating diet. COVID-19 test ordered and pending Discussed plan of care at bedside with patient. Objective - Exam Narrative Exam: Limited physical exam due to COVID-19 pandemic to minimize transmission of the disease and to preserve PPE. Vital reviewed and stable. GENERAL: well-developed well-nourished -[place] female lying on bed appeared to be in no discomfort. HEENT: Normocephalic. Atraumatic. NECK: Supple. CHEST/LUNGS: breathing nonlabored. HEART/CARDIOVASCULAR: Heart rate stable on telemetry ABDOMEN: Visibly not distended SKIN: There is no rash NEURO: No focal motor deficit. Follows command. MUSCULOSKELETAL: No joint effusion EXTRIMITY: No swelling, no cyanosis or clubbing. PSYCH: Cooperative. - Constitutional Vitals: Vital Signs - 12hr 08/13/20 08/13/20 08/13/20 06:28 10:00 11:31 Temperature 98.7 F 97.9 F Pulse Rate 103 H 94 H Respiratory 16 20 Rate Blood Pressure 117/77 137/90 O2 Sat by Pulse 100 98 96 Oximetry - Labs CBC & Chem 7: 08/14/20 06:01 08/14/20 06:01 Labs: Abnormal lab results 08/12/20 08/13/20 08/13/20 Range/Units 16:40 08:39 08:39 MCH 27 L (28-32) pg RDW 18.8 H (13.2-15.2) % Lymph % (Auto) 9.8 L (13.4-35.0) % Lymph # (Auto) 0.6 L (1.2-5.4) K/mm3 Seg Neutrophils % 87.9 H (40.0-70.0) % Sodium 136 L (137-145) mmol/L Glucose 120 H (65-100) mg/dL Lactate Dehydrogenase 235 H (91-180) units/L C-Reactive Protein 3.80 H (0.00-1.30) mg/dL HEART Score - HEART Score EKG: Non-specific Age: < 45 Risk factors: 1-2 risk factors Troponin: Troponin T < 0.010 ng/mL (0.00-0.029) 08/12/20 09:00 Troponin: < normal limit
[2020-08-14] MEDS: FUROSEMIDE 40 MG/4 ML INJ IV SCH (05:07)
[2020-08-14] MEDS: methylPREDNISolone Sod Succinate 40 MG/1 ML INJ IV SCH (05:07)
[2020-08-14 06:29] LABS: Hematocrit 35.7 % (30.3-42.9); Hemoglobin 11.5 gm/dl (10.1-14.3); Mean Corpuscular HGB Conc 32 % (30-34); Mean Corpuscular Volume 85 fl (79-97); Platelet Count 214 K/mm3 (140-440); Red Cell Distribution Width 19.4 % (13.2-15.2)
[2020-08-14 06:47] LABS: Blood Urea Nitrogen 15 mg/dL (7-17); Calcium 9.1 mg/dL (8.4-10.2); Hemolysis Index 2
[2020-08-14 06:48] LABS: BUN/Creatinine Ratio 25
[2020-08-14] MEDS: HEPARIN 5,000 UNIT/1 ML VIAL SUB-Q SCH (09:26)
[2020-08-14] MEDS: LISINOPRIL 5 MG TAB PO SCH (09:27)
[2020-08-14] MEDS: CHOLECALCIFEROL (VIT D3) 1000 UNIT (25 mcg) TAB PO SCH (09:27)
[2020-08-14] MEDS: METOPROLOL TARTRATE 25 MG TAB PO SCH (09:27)
[2020-08-14] MEDS: FERROUS SULFATE 325 MG TAB PO SCH (09:27)
[2020-08-14] MEDS: ASCORBIC ACID 500 MG TAB PO SCH (09:27)
[2020-08-14] MEDS: valACYclovir 500 MG TAB PO SCH (09:27)
[2020-08-14] MEDS: ZINC SULFATE 220 MG CAP PO SCH (09:28)
[2020-08-14] MEDS: FAMOTIDINE 20 MG TAB PO SCH (09:28)
[2020-08-14] MEDS: PRENATAL VIT27-FE FUMARATE-FOLIC ACID VIT TAB PO SCH (09:32)
[2020-08-14] MEDS ORDERED: FUROSEMIDE 40 MG TAB PO SCH (10:00)
[2020-08-14] MEDS ORDERED: SPIRONOLACTONE 25 MG TAB PO SCH (10:00)
--- NOTE | 2020-08-14 10:56 | Progress Note ---
Assessment and Plan Chest pain AMI ruled out. Echo reviewed. Will plan for ischemic work-up in outpatient setting Continue current cardiac regimen. Cardiomyopathy BNP is noted to be elevated on admission. Patient reports previous diagnosis of cardiomyopathy since approximately 2013 associated with state. Patient is currently 2 months with her 10th child. Echocardiogram reviewed (08/12/2020): EF 30 to 35%. Moderate global hypokinesis of the left ventricle. Left ventricle severely dilated. LV SF is moderately decreased. Moderate mitral regurg. Trace tricuspid regurg. RVSP is 30-35 mmHg. Patient is currently on beta-angus, ACEI/ARB: Metoprolol 25 p.o. twice daily, lisinopril 2.5 p.o. daily Heart failure reduced ejection fraction Patient appears to be near euvolemia. discontinue IV Lasix Elevated D-dimer CTA chest is negative for pulmonary thromboembolism. Further work-up per primary team. Pneumonia Management per primary team DVT prophylaxis Heparin sq Covid PUI PCR testing is pending Tobacco use Patient is 1 pack/day, [id number] smoking history. She does express interest in quitting. Cessation is encouraged. Patient has significant history of cardiomyopathy. We will plan for ischemic work-up in outpatient setting. Patient is in stable cardiac condition. Continue current cardiac regimen. Patient may discharge from cardiac standpoint. After discharge, patient should follow-up with Dr. Corona in our [place] office on 08/17/2020 at 10:45 AM. # [phone] This patient was seen in conjunction with Dr. Corona who agrees with this assessment and plan of care - Patient Problems (1) Chest pain Current Visit: Yes Status: Acute (2) Cardiomyopathy Current Visit: Yes Status: Acute (3) Heart failure with reduced ejection fraction Current Visit: Yes Status: Acute (4) Pneumonia Current Visit: Yes Status: Acute (5) DVT prophylaxis Current Visit: Yes Status: Acute (6) Asthma Current Visit: Yes Status: Chronic (7) Anxiety Current Visit: Yes Status: Chronic (8) Hypertension Current Visit: Yes Status: Chronic (9) Hyperlipidemia Current Visit: Yes Status: Chronic (10) Tobacco use Current Visit: Yes Status: Chronic (11) Elevated d-dimer Current Visit: Yes Status: Acute (12) Person under investigation for COVID-19 Current Visit: Yes Status: Acute Subjective Date of service: 08/14/20 Principal diagnosis: Short of Breath Interval history: Pt resting comfortably in bed, no CP, no 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 Telemetry reviewed: Sinus rhythm 60. No events. Objective Last Vital Signs Temp 98.2 F 08/14/20 04:47 Pulse 88 08/14/20 04:47 Resp 18 08/14/20 04:47 BP 104/67 08/14/20 04:47 Pulse Ox 96 08/14/20 08:51 - Physical Examination General: No Apparent Distress HEENT: Positive: PERRL, Normocephaly, Mucus Membranes Moist Neck: Positive: neck supple, trachea midline Cardiac: Positive: Reg Rate and Rhythm, S1/S2 Lungs: Positive: Decreased Breath Sounds Neuro: Positive: Grossly Intact Abdomen: Positive: Unremarkable, Soft Skin: Negative: Rash, Wound Extremities: Present: upper extr. pulses, lower extr. pulses. Absent: edema - Labs and Meds CBC 08/14/20 Range/Units 06:01 WBC 13.3 H (4.5-11.0) K/mm3 RBC 4.20 (3.65-5.03) M/mm3 Hgb 11.5 (10.1-14.3) gm/dl Hct 35.7 (30.3-42.9) % Plt Count 214 (140-440) K/mm3 Comprehensive Metabolic Panel 08/14/20 Range/Units 06:01 Sodium 134 L (137-145) mmol/L Potassium 3.9 (3.6-5.0) mmol/L Chloride 95.1 L (98-107) mmol/L Carbon Dioxide 27 (22-30) mmol/L BUN 15 (7-17) mg/dL Creatinine 0.6 (0.6-1.2) mg/dL Glucose 123 H (65-100) mg/dL Calcium 9.1 (8.4-10.2) mg/dL - Imaging and Cardiology EKG: report reviewed, image reviewed Echo: report reviewed (Echocardiogram reviewed (08/12/2020): EF 30 to 35%. Moderate global hypokinesis of the left ventricle. Left ventricle severely dilated. LV SF is moderately decreased. Moderate mitral regurg. Trace tricuspid regurg. RVSP is 30-35 mmHg.)
[2020-08-14] MEDS ORDERED: ASPIRIN 81 MG TAB CHEW PO SCH (11:00)
--- NOTE | 2020-08-14 12:52 | XRay Report ---
XR chest 1V ap INDICATION / CLINICAL INFORMATION: chest pain, shortness of breath COMPARISON: None available. FINDINGS: SUPPORT DEVICES: None. HEART / MEDIASTINUM: Mildly prominent cardiac silhouette LUNGS / PLEURA: Bilateral airspace disease with a central perihilar predilection. No definite effusio ns. Minimal pleural stripe thickening. Peribronchial and interstitial or septal thickening. No pneumo thorax. ADDITIONAL FINDINGS: No significant additional findings. IMPRESSION: 1. Alveolar edema with small effusions. Signer Name: John Lutz MD Signed: 08/14/2020 12:48 PM Workstation Name: [id number]
--- NOTE | 2020-08-14 14:31 | Discharge Summary ---
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 ER complaining of shortness of breath x1 day shortness of breath is with inspiration nonreproducible with palpation. Patient endorses exertional shortness of breath and orthopnea. Patient is 1 pack/day tobacco user [id number] history. Of note patient is 2 months with 10th child. BNP is noted to be elevated on admission. CTA chest reviewed negative for pulmonary thromboembolism. Right-sided multifocal pneumonia suspected. Echocardiogram reviewed (08/12/2020): EF 30 to 35%. Moderate global hypokinesis of the left ventricle. Left ventricle severely dilated. Trace tricuspid regurg. RVSP is 30-35 mmHg. Patient was admitted to telemetry floor with scheduled iv diuretics. She also placed on empiric antibiotics for pneumonia, ordered for COVID-19 PCR test. Monitored with serial CE, EKG. Cardiology consulted, 2d echo obtained. Provided cardiac diet, daily weights, monitored in's and O's. Patients symptom improved with medical management. Her COVID-19 test was negative. Cardiology recommended plan for ischemic work-up in outpatient setting. After discharge, patient should follow-up with Dr. Gupta in [place] office on 08/17/2020 at 10:45 AM. # [phone] Patient was then discharged home in stable condition with outpt f/u. Disposition: - TO HOME OR SELFCARE Final Discharge Diagnosis (Prints w/discharge instructions): Acute hypoxemic respiratory failure due to underlying pneumonia and CHF exacerbation, resolved. Suspected 2019 novel coronavirus infection ruled out. Bilateral pneumonia, likely bacterial. Acute on chronic systolic CHF exacerbation, EF 30 to 35%. Obesity. Elevated D-dimer, CTA chest negative for PE. cardiomyopathy, chronic. Ongoing tobacco abuse. Atypical chest pain, likely due to underlying pneumonia -ischemic work-up as outpatient. History of genital herpes Time spent for discharge: 34 minutes Core Measure Documentation - Palliative Care Palliative Care/ Comfort Measures: Not Applicable - Core Measures Any of the following diagnoses?: heart failure - Heart Failure Discharge Requirements JOSE ARMANDO/ARB for LVSD if EF <40%: Yes Beta angus at discharge: Yes Exam - Physical Exam Narrative exam: Limited physical exam due to COVID-19 pandemic to minimize transmission of the disease and to preserve PPE. Vital reviewed and stable. GENERAL: well-developed well-nourished -[place] female lying on bed appeared to be in no discomfort. HEENT: Normocephalic. Atraumatic. NECK: Supple. CHEST/LUNGS: breathing nonlabored. HEART/CARDIOVASCULAR: Heart rate stable on telemetry ABDOMEN: Visibly not distended SKIN: There is no rash NEURO: No focal motor deficit. Follows command. MUSCULOSKELETAL: No joint effusion EXTRIMITY: No swelling, no cyanosis or clubbing. PSYCH: Cooperative. - Constitutional Vitals: Temp Pulse Resp BP Pulse Ox 98.2 F 88 18 104/67 96 08/14/20 04:47 08/14/20 04:47 08/14/20 04:47 08/14/20 04:47 08/14/20 08:51 Plan Activity: advance as tolerated Weight Bearing Status: Weight Bear as Tolerated Diet: low fat, low salt Special Instructions: restrict fluid intake to (1.2 L daily), record daily weights Additional Instructions: Please come back to the hospital if your symptoms worsen. Follow-up with Dr. Gupta in [place] office on 08/17/2020 at 10:45 AM. # [phone] Follow up with: PRIMARY MD SHANTAL [Primary Care Provider] - 3-5 Days AMI GUPTA MD [Staff Physician] - 7 Days Prescriptions: Spironolactone [Aldactone] 25 mg PO QDAY #30 tablet Aspirin [Aspirin BABY CHEW TAB] 81 mg PO QDAY #30 tab.chew Furosemide [Lasix TAB] 40 mg PO QDAY #30 tablet levoFLOXacin [Levaquin] 750 mg PO QDAY #5 tablet Metoprolol [Lopressor TAB] 25 mg PO BID #60 tablet valACYclovir [Valtrex] 500 mg PO BID #20 tablet lisinopriL [Zestril TAB] 2.5 mg PO QDAY #30 tablet
[2020-08-14 15:06] VITALS: BP 110/70
== END 2020-08-14 16:00 | disposition home or self-care (01) | DRG 189 ==
LOC: ED 02:47 → 3A 14:10
PROVIDERS: ADMIT Internal Medicine; ATTEND Internal Medicine
DX: J96.01 Acute respiratory failure with hypoxia (principal); I11.0 Hypertensive heart disease with heart failure; Z20.822 Contact with and (suspected) exposure to COVID-19; I50.23 Acute on chronic systolic (congestive) heart failure; J18.9 Pneumonia, unspecified organism; F41.9 Anxiety disorder, unspecified; E78.5 Hyperlipidemia, unspecified; F17.210 Nicotine dependence, cigarettes, uncomplicated; I42.9 Cardiomyopathy, unspecified; E66.2 Morbid (severe) obesity with alveolar hypoventilation; J45.909 Unspecified asthma, uncomplicated; Z71.3 Dietary counseling and surveillance; Z79.899 Other long term (current) drug therapy; Z79.891 Long term (current) use of opiate analgesic; Z79.01 Long term (current) use of anticoagulants; Z91.19 Patient's noncompliance with other medical treatment and regimen; Z82.49 Family history of ischemic heart disease and other diseases of the circulatory system
CPT/HCPCS: 36415; 71045; 71275; 80048; 82550; 82553; 82728; 82947; 83615; 83735; 83880; 84145; 84484; 84703; 85025; 85027; 85379; 86140; 87040; 93005; 93306; 94640; 96365; 96375; G0378; J0456; J0696; J1644; J1940; J2920; Q9967; U0003